=== PATIENT | male | born 1940 | race Caucasian/White ===

== ENCOUNTER 2019-07-23 06:03 | Emergency (ER) | payer MEDICARE, OTHER ==
[2019-07-23] MEDS ORDERED: Nitroglycerin 0.4 MG Tab.SL SL ONE (06:09)
[2019-07-23] MEDS ORDERED: Aspirin 81 MG Tab.Chew PO ONE (06:09)
--- NOTE | 2019-07-23 06:21 | EDM.PDOC ---
<Zaria Otto Elian - Last Filed: 07/23/19 06:46> ED HPI GENERAL MEDICAL PROBLEM - General Stated Complaint: CHEST PAIN Time Seen by Provider: 07/23/19 06:15 Source of Information: Reports: Patient, RN History Limitations: Reports: No Limitations - History of Present Illness INITIAL COMMENTS - FREE TEXT/NARRATIVE: ED ambulatory with c/o chest pain, intermittent since 0400 started upper abdomen then moved to med chest, tried alexus-seltzer and helped initially, then pepto but not as much, rates pain 7/10. No nausea, or SOB, No sweating or radiation of pain. No cough. Hx NM in 1994, feels similar. Stents in 1999. Not from area, here celebrating birthday with friend. On many medications does not have with, nor does he know names of medications. Duration: Intermittent Bilateral Chest Pain Score (Numeric/FACES): 7 - Related Data Allergies Allergy/AdvReac Type Severity Reaction Status Date / Time atorvastatin [From Lipitor] Allergy Other Verified 07/23/19 06:10 Home Meds: Home Meds . [Unable to Verify Home Med List] 07/23/19 [History] ED ROS GENERAL - Review of Systems Review Of Systems: Comprehensive ROS is negative, except as noted in HPI. ED EXAM, GENERAL - Physical Exam Exam: See Below Exam Limited By: No Limitations General Appearance: Alert, No Apparent Distress, Obese Eye Exam: Bilateral Eye: EOMI Ears: Normal External Exam, Hearing Grossly Normal Nose: Normal Inspection Throat/Mouth: Normal Inspection, Normal Voice Head: Atraumatic, Normocephalic Neck: Normal Inspection Respiratory/Chest: No Respiratory Distress, Lungs Clear Cardiovascular: Normal Peripheral Pulses, Regular Rate, Rhythm, No Edema GI/Abdominal: Normal Bowel Sounds, Soft Extremities: Normal Inspection. No: Leg Pain Neurological: Alert, Oriented, Normal Cognition Psychiatric: Normal Affect, Normal Mood Skin Exam: Warm, Dry, Intact, Normal Color Course - Vital Signs Last Recorded V/S: Last Vital Signs Temp 35.8 C 07/23/19 06:06 Pulse 59 L 07/23/19 09:48 Resp 11 L 07/23/19 09:48 BP 147/67 H 07/23/19 09:48 Pulse Ox 100 07/23/19 09:48 - Orders/Labs/Meds Orders: Active Orders 24 hr Category Date Time Status EKG 12 Lead [EKG Documentation Completion] [RC] URGENT Care 07/23/19 10:00 Active EKG Documentation Completion [RC] URGENT Care 07/23/19 06:06 Active Labs: Laboratory Tests 07/23/19 07/23/19 07/23/19 Range/Units 06:10 06:10 06:10 WBC 6.5 (5.0-10.0) 10^3/uL RBC 4.36 L (4.6-6.2) 10^6/uL Hgb 12.9 L (14.0-18.0) g/dL Hct 37.8 L (40.0-54.0) % MCV 86.7 (80-100) fL MCH 29.6 (27.0-34.0) pg MCHC 34.1 (33.0-35.0) g/dL Plt Count 167 (150-450) 10^3/uL Neut % (Auto) 64.3 (42.2-75.2) % Lymph % (Auto) 19.8 L (20.5-50.1) % [place] % (Auto) 11.4 H (2-8) % Eos % (Auto) 4.2 H (1.0-3.0) % Baso % (Auto) 0.3 (0.0-1.0) % PT 10.1 (9.0-12.0) SEC INR 1.0 (0.9-1.2) D-Dimer, Quantitative (0-400) ng/mL Sodium 138 (135-145) mmol/L Potassium 3.7 (3.6-5.0) mmol/L Chloride 99 L (101-111) mmol/L Carbon Dioxide 30.0 (21.0-31.0) mmol/L Anion Gap 12.7 BUN 26 H (7-18) mg/dL Creatinine 1.0 (0.6-1.3) mg/dL Est Cr Clr Drug Dosing 56.00 mL/min Estimated GFR (MDRD) > 60 BUN/Creatinine Ratio 26.00 Glucose 135 H (74-105) mg/dL Calcium 9.3 (8.4-10.2) mg/dl Magnesium 1.8 (1.8-2.5) mg/dL Total Bilirubin 0.8 (0.2-1.0) mg/dL AST 19 (10-42) IU/L ALT 19 (10-60) IU/L Alkaline Phosphatase 45 (42-121) IU/L Creatine Kinase 37 (26-174) IU/L Troponin I < 0.02 (0.00-0.02) ng/ml B-Natriuretic Peptide 28 (0-100) pg/ml Total Protein 6.7 (6.7-8.2) g/dl Albumin 4.0 (3.2-5.5) g/dl Globulin 2.7 Albumin/Globulin Ratio 1.48 Amylase 102 H (28-100) U/L Lipase 42 (22-51) U/L 07/23/19 07/23/19 Range/Units 06:10 10:19 WBC (5.0-10.0) 10^3/uL RBC (4.6-6.2) 10^6/uL Hgb (14.0-18.0) g/dL Hct (40.0-54.0) % MCV (80-100) fL MCH (27.0-34.0) pg MCHC (33.0-35.0) g/dL Plt Count (150-450) 10^3/uL Neut % (Auto) (42.2-75.2) % Lymph % (Auto) (20.5-50.1) % [place] % (Auto) (2-8) % Eos % (Auto) (1.0-3.0) % Baso % (Auto) (0.0-1.0) % PT (9.0-12.0) SEC INR (0.9-1.2) D-Dimer, Quantitative 403 H (0-400) ng/mL Sodium (135-145) mmol/L Potassium (3.6-5.0) mmol/L Chloride (101-111) mmol/L Carbon Dioxide (21.0-31.0) mmol/L Anion Gap BUN (7-18) mg/dL Creatinine (0.6-1.3) mg/dL Est Cr Clr Drug Dosing mL/min Estimated GFR (MDRD) BUN/Creatinine Ratio Glucose (74-105) mg/dL Calcium (8.4-10.2) mg/dl Magnesium (1.8-2.5) mg/dL Total Bilirubin (0.2-1.0) mg/dL AST (10-42) IU/L ALT (10-60) IU/L Alkaline Phosphatase (42-121) IU/L Creatine Kinase (26-174) IU/L Troponin I < 0.02 (0.00-0.02) ng/ml B-Natriuretic Peptide (0-100) pg/ml Total Protein (6.7-8.2) g/dl Albumin (3.2-5.5) g/dl Globulin Albumin/Globulin Ratio Amylase (28-100) U/L Lipase (22-51) U/L Meds: Medications Discontinued Medications Generic Name Dose Route Start Last Admin Trade Name Freq PRN Reason Stop Dose Admin Aspirin 324 mg 07/23/19 06:09 07/23/19 06:15 Aspirin PO 07/23/19 06:10 324 mg ONETIME ONE Administration Morphine Sulfate 2 mg 07/23/19 06:23 07/23/19 06:28 Morphine IVPUSH 07/23/19 06:24 2 mg ONETIME ONE Administration Morphine Sulfate 2 mg 07/23/19 06:57 07/23/19 07:07 Morphine IVPUSH 07/23/19 06:58 2 mg ONETIME ONE Administration Nitroglycerin 0.4 mg 07/23/19 06:09 07/23/19 06:16 Nitrostat SL 07/23/19 06:10 0.4 mg ONETIME ONE Administration Ondansetron HCl 4 mg 07/23/19 06:23 07/23/19 06:27 Zofran IVPUSH 07/23/19 06:24 4 mg ONETIME ONE Administration Pantoprazole Sodium 40 mg 07/23/19 07:34 07/23/19 07:45 Protonix Iv IVPUSH 07/23/19 07:35 40 mg ONETIME ONE Administration - Radiology Interpretation Free Text/Narrative:: CXR no acute process - Re-Assessments/Exams Free Text/Narrative Re-Assessment/Exam: 07/23/19 07:08 Pain 3/10. No SOB, No radiation. noting pain worsens when flat. Repeat Morphine pending . Care tx to Rich Coates PA-C with shift change. Departure - Departure Disposition: Home, Self-Care 01 Clinical Impression: GERD (gastroesophageal reflux disease) Qualifiers: Esophagitis presence: with esophagitis Qualified Code(s): K21.0 - Gastro- esophageal reflux disease with esophagitis Instructions: Nonspecific Chest Pain, [id number], Gastroesophageal Reflux Disease, Adult, [id number] Forms: ED Department Discharge Care Plan Goals: The patient was advised of the examination, lab, EKG, repeat lab and repeat EKG results during the visit. The patient was discharged with a script for Omeprazole (20 mg) #30 to take 1 by mouth 30 minutes prior to eating daily. If the patient has any additional symptoms or concerns, the patient should either return to the emergency department or visit his primary care facility. Sepsis Event Note - Focused Exam Vital Signs: Vital Signs Temp Pulse Resp BP BP Pulse Ox 07/23/19 09:48 59 L 11 L 147/67 H 100 07/23/19 08:00 59 L 11 L 140/68 100 07/23/19 07:00 61 13 142/73 H 99 07/23/19 06:16 168/76 H 07/23/19 06:06 35.8 C 65 18 183/85 H 97 Date Exam was Performed: 07/23/19 Time Exam was Performed: 06:46 <Eugene Coates - Last Filed: 07/23/19 11:03> Departure - Departure Time of Disposition: 11:01 Condition: Fair Sepsis Event Note - Focused Exam Date Exam was Performed: 07/23/19 Time Exam was Performed: 11:01
[2019-07-23] MEDS ORDERED: Morphine 2 MG/ML Syringe IVPUSH ONE ×2 (06:23→06:57)
[2019-07-23] MEDS ORDERED: Ondansetron 4 MG/2 ML SDV IVPUSH ONE (06:23)
[2019-07-23 06:43] LABS: ANION GAP 12.7; CHLORIDE,CL 99 mmol/L (101-111); SODIUM,NA 138 mmol/L (135-145)
[2019-07-23] MEDS ORDERED: Pantoprazole 40 MG Vial IVPUSH ONE (07:34)
== END 2019-07-23 11:16 | disposition home or self-care (01) ==
LOC: EDBD 06:03 → DL.ED 06:03
DX: K21.0 Gastro-esophageal reflux disease with esophagitis (principal); Z88.8 Allergy status to other drugs, medicaments and biological substances
CPT/HCPCS: 36415; 71045; 80053; 82150; 82550; 83690; 83735; 83880; 84484; 85025; 85379; 85610; 93005; 96374; 96375; 96376; 99285; A9270; C9113; J2270; J2405